=== PATIENT | female | born 1985 | race Caucasian/White ===

== ENCOUNTER → 2016-05-17 | Outpatient (CLI) | payer OTHER ==
[~2016-05-17] MED LIST: ONDA4TAB10 SL; PRENTAB26 PO
[2016-05-17 17:31] LABS: BASO % 0.1 %; BASO ABS # 0.01 K/uL (0-0.2); COMPLETE YES; EOS % 1.4 %; HEMATOCRIT 36.7 % (37-47); IG% 0.3 %; LYMPH % 24.7 %; LYMPH ABS # 1.96 K/uL (1.2-3.4); MEAN CELL VOLUME 87.4 fL (80-100); MEAN CORPUSCULAR HGB CONC 35.4 g/dl (32-36); MEAN PLATELET VOLUME 10.4 fL (7.4-10.4); NEUT % 67.5 %; PLATELET COUNT 187 K/uL (130-400); WHITE BLOOD COUNT 7.95 K/uL (4.8-10.8)
[2016-05-17 18:05] LABS: GTGD 50 Grams
== END | disposition home or self-care (01) ==
LOC: C.LAB1850 15:56
PROVIDERS: ATTEND Obstetrics & Gynecology
DX: O09.512 Supervision of elderly primigravida, second trimester (principal); Z3A.00 Weeks of gestation of pregnancy not specified; Z34.00 Encounter for supervision of normal first pregnancy, unspecified trimester

== ENCOUNTER → 2016-05-25 | Outpatient (CLI) | payer OTHER | END | disposition home or self-care (01) | LOC: C.LABPBG 14:59 | PROVIDERS: ATTEND Neuromusculoskeletal Medicine & OMM | DX: J06.9 Acute upper respiratory infection, unspecified (principal) ==

== ENCOUNTER 2016-07-30 00:11 | Outpatient (CLI) | payer OTHER ==
[~2016-07-30] VITALS: Ht 170.2 cm; Wt 76.0 kg
[2016-07-30 00:38] VITALS: Ht 170.2 cm; Wt 76.0 kg
[2016-07-30] MEDS ORDERED: PRENTAB26 PO (01:18)
--- NOTE | 2016-08-02 12:36 | EDITING REQUIRED CODING QUERY ---
DIAGNOSIS NEEDED To promote full compliance with coding requirements relating to patient care, physician participation is requested in all cases of insurance coder uncertainty. Please assist us with the question(s) below: Coding Question: The patient received care in labor and delivery on 07/30/16 as noted within the record. Please document the diagnosis that is being addressed by the medication/treatment. Provider Response: DIAGNOSIS: Looks like Joanne was involved that dos. Thank you for your assistance, Maribell Craig - Lead Data Entry Operator
--- NOTE | 2016-08-14 14:15 | EDITING REQUIRED CODING QUERY ---
DIAGNOSIS NEEDED To promote full compliance with coding requirements relating to patient care, physician participation is requested in all cases of intern brand uncertainty. Please assist us with the question(s) below: Coding Question: The patient received care in labor and delivery on 07/30/16 as noted within the record. Please document the diagnosis that is being addressed by the medication/treatment. Provider Response: DIAGNOSIS: Abdominal pain in , 646.83 Thank you for your assistance, Maribell Craig - Fluid Dynamicist
== END 2016-07-30 00:40 | disposition home or self-care (01) ==
LOC: C.LD 00:11 → C.OPB 00:11
PROVIDERS: ATTEND Obstetrics & Gynecology
DX: O99.89 Other specified diseases and conditions complicating pregnancy, childbirth and the puerperium (principal); R10.9 Unspecified abdominal pain; Z3A.26 26 weeks gestation of pregnancy

== ENCOUNTER → 2016-08-09 | Outpatient (CLI) | payer OTHER ==
[2016-08-09 15:03] LABS: URINE APPEARANCE CLEAR (CLEAR); URINE BILIRUBIN NEG (NEG); URINE COLOR YELLOW; URINE EPITHELIAL CELL AUTO >30 /lpf (0-5); URINE NITRITE NEG (NEG); URINE SPECIFIC GRAVITY 1.013 (1.000-1.030); UROBILINOGEN NEG (NEG)
[2016-08-09 15:07] LABS: MANUAL MICROSCOPIC REQUIRED? NO; REVIEW REQ? YES
== END | disposition home or self-care (01) ==
LOC: C.LABSPEC 13:36
PROVIDERS: ATTEND Obstetrics & Gynecology
DX: O09.513 Supervision of elderly primigravida, third trimester (principal)

== ENCOUNTER → 2016-08-09 | Outpatient (CLI) | payer OTHER ==
[2016-08-09 12:21] LABS: HEMATOCRIT 34.7 % (37-47)
[2016-08-09 13:19] LABS: GTGD 50 Grams
== END | disposition home or self-care (01) ==
LOC: C.LAB1850 10:38
PROVIDERS: ATTEND Obstetrics & Gynecology
DX: O09.513 Supervision of elderly primigravida, third trimester (principal)

== ENCOUNTER → 2016-09-09 | Outpatient (CLI) | payer OTHER ==
[2016-09-09 10:00] LABS: PATIENT HEIGHT 170.2 cm
[2016-09-09 10:43] LABS: HEMATOCRIT 33.7 % (37-47); MEAN CELL VOLUME 91.1 fL (80-100); MEAN CORPUSCULAR HGB CONC 32.9 g/dl (32-36); MEAN PLATELET VOLUME 10.5 fL (7.4-10.4); PLATELET COUNT 180 K/uL (130-400); WHITE BLOOD COUNT 7.56 K/uL (4.8-10.8)
[2016-09-09 11:01] LABS: URINE TOTAL PROTEIN 10.3 mg/dl (0-11.9)
[2016-09-09 11:13] LABS: ALKALINE PHOSPHATASE 97 U/L (45-117); ALT/SGPT 17 U/L (12-78); AST/SGOT 15 U/L (15-37); URIC ACID 2.8 mg/dl (2.6-7.2)
[2016-09-09 11:21] LABS: URINE TOTAL PROTEIN CALC 260.1 mg/24 hr (0-149.1)
[2016-09-09 11:28] LABS: CREATININE 0.58 mg/dl (0.6-1.2)
== END | disposition home or self-care (01) ==
LOC: C.LAB 09:44
PROVIDERS: ATTEND Obstetrics & Gynecology
DX: R03.0 Elevated blood-pressure reading, without diagnosis of hypertension (principal)

== ENCOUNTER → 2016-10-09 | Outpatient (CLI) | payer OTHER | END | disposition home or self-care (01) | LOC: C.LABSPEC 16:04 | PROVIDERS: ATTEND Obstetrics & Gynecology | DX: Z34.03 Encounter for supervision of normal first pregnancy, third trimester (principal) ==

== ENCOUNTER 2016-10-15 02:50 | Emergency (ER) | payer OTHER ==
[~2016-10-15] VITALS: Ht 170.2 cm; Wt 74.5 kg
[~2016-10-15 02:50] MED LIST changes: -ONDA4TAB10 SL
[2016-10-15 02:52] VITALS: TEMP 36.5; Ht 170.2 cm; Wt 74.5 kg
[2016-10-15] MEDS ORDERED: METOCLOPRAMIDE HCL INJ 5 MG/ML 2 ML VIAL IV STA (03:08)
[2016-10-15] MEDS ORDERED: SODIUM CHLORIDE 0.9% 1000ML 1,000 ML IV STA ×2 (03:08→04:34)
[2016-10-15] MEDS ORDERED: DiphenhydrAMINE HCL 50 MG/ML VIAL IV STA (03:08)
[2016-10-15 03:31] LABS: BASO % 0.2 %; BASO ABS # 0.02 K/uL (0-0.2); COMPLETE YES; HEMATOCRIT 32.2 % (37-47); IG% 0.2 %; LYMPH % 28.7 %; LYMPH ABS # 2.71 K/uL (1.2-3.4); MEAN CELL VOLUME 88.2 fL (80-100); MEAN CORPUSCULAR HEMOGLOBIN 29.6 pg (25-34); MEAN CORPUSCULAR HGB CONC 33.5 g/dl (32-36); MEAN PLATELET VOLUME 10.6 fL (7.4-10.4); MONO % 7.1 %; NEUT % 62.8 %; PLATELET COUNT 150 K/uL (130-400); RED BLOOD COUNT 3.65 M/uL (4.2-5.4); WHITE BLOOD COUNT 9.44 K/uL (4.8-10.8)
[2016-10-15 03:52] LABS: BUN/CREATININE RATIO 10.7 (10-20); CALCIUM 8.7 mg/dl (8.5-10.1); CREATININE 0.57 mg/dl (0.60-1.20); POTASSIUM 3.4 mmol/L (3.5-5.1)
[2016-10-15] MEDS ORDERED: POTASSIUM CHLORIDE 10 MEQ TABCR PO STA (04:01)
[2016-10-15] MEDS ORDERED: ACETAMINOPHEN 500 MG TAB PO STA (04:20)
[2016-10-15 04:24] LABS: URINE APPEARANCE CLEAR (CLEAR); URINE BILIRUBIN NEG (NEG); URINE COLOR YELLOW; URINE EPITHELIAL CELL AUTO >30 /lpf (0-5); URINE NITRITE NEG (NEG); URINE SPECIFIC GRAVITY 1.011 (1.000-1.030); UROBILINOGEN NEG (NEG); ZZUR CULT IF INDIC CLEAN CATCH YES
[2016-10-15 04:26] LABS: MANUAL MICROSCOPIC REQUIRED? NO; REVIEW REQ? NO
--- NOTE | 2016-10-15 05:35 | EMERGENCY ROOM VISIT NOTE ---
History First contact with patient: 02:56 Chief Complaint: HEADACHE Stated Complaint: MIGRAINE,VOMITING History of Present Illness The patient is a 31 year old female who presents to the Emergency Room with complaints of nausea and vomiting for the past day who developed a headache last night. Patient states she went out to dinner with her friends and then several hours later she developed nausea and vomiting. She states the next day she laid in the house today and then she vomited again and developed a headache over a short time. This was not sudden on set. She describes the headache as throbbing, ranging in severity throughout her head currently 10 out of 10. Patient complains of photophobia. Patient denies chest pain, dyspnea, diarrhea , flulike illness, vision problems, numbness, tingling, weakness, dysarthria, abdominal pain, problems with the . This is her first . Patient states she feels dehydrated. She's been unable to keep fluids down. Review of Systems See HPI for pertinent positives & negatives. A total of 10 systems reviewed and were otherwise negative. Past Medical/Surgical History None Social History Smoking Status: Former Smoker Alcohol Use: none Drug Use: none Current/Historical Medications No Active Prescriptions or Reported Meds Allergies Coded Allergies: No Known Allergies (Unverified , 10/15/16) Physical Exam Vital Signs Date Time Temp Pulse Resp B/P (MAP) Pulse Ox O2 Delivery O2 Flow Rate FiO2 10/15/16 02:52 36.5 80 18 123/88 100 Room Air Physical Exam VITALS: Vitals are noted on the nurse's note and reviewed by myself. Vital signs stable. GENERAL: Pleasant female, in no acute distress, nondiaphoretic, well-developed well-nourished. SKIN: The skin was without rashes, erythema, edema, or bruising. There is no tenting of the skin. Capillary reflex less than 2 seconds. HEAD: Normocephalic atraumatic. EARS: External auditory canals clear, tympanic membranes pearly lama without erythema or effusion bilaterally. EYES: Pupils equal round and reactive to light and accommodation. Conjunctivae without injection, sclerae without icterus. Extraocular movements intact. NOSE: Patent, turbinates without inflammation or discharge. MOUTH: Mucous membranes mildly dry. Pharynx without erythema or exudate. Uvula midline. Airway patent. Tongue does not deviate. NECK: Supple without nuchal rigidity. No lymphadenopathy. No thyromegaly. Cervical spine is nontender. No JVD. HEART: Regular rate and rhythm without murmurs gallops or rubs. LUNGS: Clear to auscultation bilaterally without wheezes, rales or rhonchi. No dullness to percussion. No retractions or accessory muscle use. ABDOMEN: Positive bowel sounds x 4. Normal tympanic percussion. Soft, 38 weeks , nontender, without masses or organomegaly. Reyes sign negative. No guarding or rebound tenderness. MUSCULOSKELETAL: No muscle atrophy, erythema, or edema noted. NEURO: Patient was alert and oriented to person place and time. Normal sensation to light and sharp touch. No focal neurological deficits. Cranial nerves II through XII grossly intact. No pronator drift, cerebellar exam intact. 5 out of 5 strength throughout Medical Decision & Procedures Laboratory Results 10/15/16 03:15 Red Blood Count 3.65, Mean Corpuscular Volume 88.2, Mean Corpuscular Hemoglobin 29.6, Mean Corpuscular Hemoglobin Concent 33.5, Mean Platelet Volume 10.6, Neutrophils (%) (Auto) 62.8, Lymphocytes (%) (Auto) 28.7, Monocytes (%) (Auto) 7.1, Eosinophils (%) (Auto) 1.0, Basophils (%) (Auto) 0.2, Neutrophils # (Auto) 5.93, Lymphocytes # (Auto) 2.71, Monocytes # (Auto) 0.67, Eosinophils # (Auto) 0.09, Basophils # (Auto) 0.02 10/15/16 03:15 Test 10/15/16 00:00 10/15/16 03:15 Urine Color YELLOW Urine Appearance CLEAR (CLEAR) Urine pH 8.0 (4.5-7.5) Urine Specific [place] 1.011 (1.000-1.030) Urine Protein NEG (NEG) Urine Glucose (UA) NEG (NEG) Urine Ketones 2+ (NEG) Urine Occult Blood NEG (NEG) Urine Nitrite NEG (NEG) Urine Bilirubin NEG (NEG) Urine Urobilinogen NEG (NEG) Urine Leukocyte Esterase MODERATE (NEG) Urine WBC (Auto) 5-10 /hpf (0-5) Urine RBC (Auto) 5-10 /hpf (0-4) Urine Hyaline Casts (Auto) 1-5 /lpf (0-5) Urine Epithelial Cells (Auto) >30 /lpf (0-5) Urine Bacteria (Auto) 2+ (NEG) White Blood Count 9.44 K/uL (4.8-10.8) Red Blood Count 3.65 M/uL (4.2-5.4) Hemoglobin 10.8 g/dL (12.0-16.0) Hematocrit 32.2 % (37-47) Mean Corpuscular Volume 88.2 fL (80-100) Mean Corpuscular Hemoglobin 29.6 pg (25-34) Mean Corpuscular Hemoglobin Concent 33.5 g/dl (32-36) Platelet Count 150 K/uL (130-400) Mean Platelet Volume 10.6 fL (7.4-10.4) Neutrophils (%) (Auto) 62.8 % Lymphocytes (%) (Auto) 28.7 % Monocytes (%) (Auto) 7.1 % Eosinophils (%) (Auto) 1.0 % Basophils (%) (Auto) 0.2 % Neutrophils # (Auto) 5.93 K/uL (1.4-6.5) Lymphocytes # (Auto) 2.71 K/uL (1.2-3.4) Monocytes # (Auto) 0.67 K/uL (0.11-0.59) Eosinophils # (Auto) 0.09 K/uL (0-0.5) Basophils # (Auto) 0.02 K/uL (0-0.2) RDW Standard Deviation 43.0 fL (36.4-46.3) RDW Coefficient of Variation 13.4 % (11.5-14.5) Immature Granulocyte % (Auto) 0.2 % Immature Granulocyte # (Auto) 0.02 K/uL (0.00-0.02) Anion Gap 12.0 mmol/L (3-11) Est Creatinine Clear Calc Drug Dose 153.5 ml/min Estimated GFR () 145.2 Estimated GFR (Non- 125.3 BUN/Creatinine Ratio 10.7 (10-20) Calcium Level 8.7 mg/dl (8.5-10.1) Medications Administered Medications (Trade) Dose Ordered Sig/Cookie Route Start Time Stop Time Status Last Admin Dose Admin Sodium Chloride 1,000 ml @ 999 mls/hr Q1H1M STAT IV 10/15/16 03:08 6/26/17 04:08 DC 10/15/16 03:31 999 MLS/HR Metoclopramide HCl (Reglan Inj) 10 mg NOW STAT IV 10/15/16 03:08 10/15/16 03:11 DC 10/15/16 03:31 10 MG Diphenhydramine HCl (Benadryl Inj) 12.5 mg NOW STAT IV 10/15/16 03:08 10/15/16 03:11 DC 10/15/16 03:31 12.5 MG Potassium Chloride (Klor-Con M10) 10 meq NOW STAT PO 10/15/16 04:01 10/15/16 04:02 DC 10/15/16 04:08 10 MEQ Acetaminophen (Tylenol Tab) 1,000 mg NOW STAT PO 10/15/16 04:20 10/15/16 04:21 DC 10/15/16 04:30 1,000 MG Sodium Chloride 1,000 ml @ 999 mls/hr Q1H1M STAT IV 10/15/16 04:34 10/15/16 05:34 DC 10/15/16 04:38 999 MLS/HR ED Course Prior records/ancillary studies reviewed. Additional history obtained from family. Triage Nursing notes reviewed. The patient's history was concerning for headache. Differential diagnosis: Etiologies such as migraine headache, meningitis, sinusitis, CO exposure, ICH, SAH, infection, tumor, headache, sinus thrombosis, arterial dissection, as well as others were entertained. Physical examination findings: As above. Non-focal. ER treatment provided: Reglan, Benadryl, IV fluids On reassessment the patient felt better. Diagnostics interpreted by me: The labs revealed urine 2+ ketones, mild anemia. Hypokalemia and this is replaced orally heart tones reviewed This appears to be consistent with headache with vomiting most likely from dehydration. Patient started with nausea and vomiting and was unable to keep fluids down and developed a headache. This is most likely from dehydration. She is hydrated as above and felt much better. She is neurovascularly and neurologically intact. Normal heart tones. She is advised follow-up with OB in a few days or here in the ER sooner for headache, weakness, vomiting , worsening signs or symptoms or as needed. She is tolerating fluids. She ambulates out of the ER without difficulties. By the evaluation outlined above emergent etiologies such as meningitis, sinusitis, CO exposure, ICH, SAH, infection, temporal arteritis, tumor, sinus thrombosis, arterial dissection, as well as others were deemed relatively unlikely. The pt informed about the findings as listed above. All questions were answered and pleased with the treatment. Return instructions were outlined and the patient was discharged in stable condition. Outpatient prescription management: Zofran Referral: The patient was referred back to their DIRECTOR EXPERIMENTAL MEDICINE for follow-up in 2 to 3 days for a recheck of the current condition. Case reviewed with my attending Medical Decision As above Impression Primary Impression: Headache Additional Impressions: Nausea & vomiting Dehydration Departure Information Dispostion Home / Self-Care Condition GOOD Prescriptions No Active Prescriptions or Reported Meds Referrals Javon Burks D.O. (PCP) Patient Instructions My [facility] Additional Instructions DO NOT drive, drink alcohol, operate machinery, or perform dangerous activities today. You were given medications in the ER that can affect your ability to safely function or operate a vehicle. Zofran(odansetron) tablets 4mg: Take one and allow it to dissolve in your mouth every four to six hours as needed for nausea or vomiting. Acetaminophen(Tylenol) may be used for fever or pain. Use 1000mg every six hours as needed. Avoid using more than 3000mg in a 24 hour period. Rest and drink plenty of fluids as tolerated. Slow sips of water or sports drinks are recommended instead of large amounts all at once. Continue current medications. Once your stomach is settled start with a clear liquid diet (jello, soup broth, etc.) and then advance as tolerated. You should avoid full, heavy meals for about 24 hrs from the time your symptoms resolved. Return to the ER for persistent vomiting, fevers, abdominal pain, chest pains, difficulty breathing, black or bloody stools, worsening of your condition, or as needed. Follow up with your DIRECTOR EXPERIMENTAL MEDICINE in 2-3 days for a recheck of your current condition. Problem Qualifiers Primary Impression: Headache Headache type: unspecified Headache chronicity pattern: acute headache Intractability: not intractable Qualified Codes: R51 - Headache Additional Impressions: Nausea & vomiting Vomiting type: unspecified Vomiting Intractability: non-intractable Qualified Codes: R11.2 - Nausea with vomiting, unspecified
[2016-10-15] MEDS ORDERED: ONDA4TAB10 SL (05:36)
[2016-10-15] MEDS ORDERED: ONDANSETRON HOME PACK 4MG OD TAB PO ONE (05:45)
[2016-10-15 06:20] VITALS: BP 117/86; PULSE 83; O2SAT 100
== END 2016-10-15 06:21 | disposition home or self-care (01) ==
LOC: C.EDB 02:51
DX: R51 Headache (principal); O21.9 Vomiting of pregnancy, unspecified; O99.283 Endocrine, nutritional and metabolic diseases complicating pregnancy, third trimester; Z3A.38 38 weeks gestation of pregnancy; E86.0 Dehydration; Z87.891 Personal history of nicotine dependence

== ENCOUNTER 2016-10-30 01:00 | Inpatient (IN) | payer OTHER ==
[~2016-10-30] VITALS: Ht 170.2 cm; Wt 75.3 kg
[2016-10-30] VITALS (12 sets, daily range): BP systolic 116–131; BP diastolic 66–92; PULSE 89–108; TEMP 36.6–37.8; O2SAT 99–100; Ht 170.2 cm; Wt 75.3 kg
[~2016-10-30 01:00] MED LIST changes: +ONDA4TAB10 SL; -PRENTAB26 PO
[2016-10-30] MEDS ORDERED: PRENTAB26 PO (01:28)
[2016-10-30] MEDS ORDERED: LACTATED RINGER'S 1000ML 1,000 ML IV SCH ×2 (03:00→16:30)
[2016-10-30] MEDS ORDERED: LACTATED RINGER'S 1000ML 1,000 ML IV PRN (03:00)
[2016-10-30] MEDS ORDERED: BUTORPHANOL TARTRATE 1 MG/ML VIAL IV PRN (03:00)
[2016-10-30 03:48] LABS: HEMATOCRIT 31.9 % (37-47); MEAN CELL VOLUME 87.2 fL (80-100); MEAN CORPUSCULAR HGB CONC 33.2 g/dl (32-36); MEAN PLATELET VOLUME 10.7 fL (7.4-10.4); PLATELET COUNT 155 K/uL (130-400); RED BLOOD COUNT 3.66 M/uL (4.2-5.4); WHITE BLOOD COUNT 11.58 K/uL (4.8-10.8)
[2016-10-30] MEDS ORDERED: BUPIVACAINE 0.25% 30 ML VIAL ONE (04:42)
[2016-10-30] MEDS ORDERED: FENTANYL CITRATE INJ 50 MCG/1 ML 2 ML VIAL ONE ×2 (04:43→07:28)
[2016-10-30] MEDS ORDERED: EpHEDrine SULFATE INJ 50 MG/ML AMP ONE (04:43)
[2016-10-30] MEDS ORDERED: FENTANYL 2MCG/ML ROPIV 1.25MG/ML 100ML BAG EPI ONE (04:43)
[2016-10-30] MEDS ORDERED: OXYTOCIN 30 UNITS/500ML NSS IV ONE (05:16)
[2016-10-30] MEDS ORDERED: ACETAMINOPHEN/CODEINE 300/30MG TAB PO PRN ×2 (06:00)
[2016-10-30] MEDS ORDERED: ACETAMINOPHEN 325 MG TAB PO PRN (06:00)
[2016-10-30] MEDS ORDERED: SUPERCREAM 0.870 % 15GM JAR EXT PRN (06:00)
[2016-10-30] MEDS ORDERED: BENZOCAINE 20% AER SPR 82.5 GM CAN EXT PRN (06:00)
[2016-10-30] MEDS ORDERED: IBUPROFEN 600 MG TAB PO PRN (06:00)
--- NOTE | 2016-10-30 06:10 | Vaginal Delivery Summary ---
Vaginal Delivery Summary The patient is a 31-year-old 1 P0 white female EDC of 11/02/2016 who began regular contractions approximately 2300 hrs. they became more regular and closer together when she presented to labor and delivery. There was rupture of membranes of clear fluid at approximately 2300 hrs. as well. She rapidly went to full dilation and pushed effectively over an intact perineum however there was persistent bradycardia to 80-90 bpm. The presenting part was at +3 station and because of the persistence of the bradycardia, a vacuum was applied and with gentle traction through 4 contractions with only one pop off the vertex was brought to on the perineum. She pushed the infant amount over a mediolateral episiotomy.. Mouth and nasopharynx were suctioned on the perineum and the rest of the was delivered without difficulty. There was vigorous crying upon delivery and movement of all 4 limbs. The infant was placed on the mother's abdomen for further attention and drying. The mediolateral episiotomy was repaired in the usual fashion with 3-0 chromic. 1% lidocaine was used to anesthetize the area prior to the repair. bleeding was controlled with dilute Pitocin. Estimated blood loss is 500 mL. Mother and infant are doing well postdelivery.
[2016-10-30] MEDS: OXYTOCIN 30 UNITS/500ML NSS IV PRN ×2 (06:12→07:10)
[2016-10-30] MEDS ORDERED: METHYLERGONOVINE MALEATE 0.2 MG/ML AMP ONE (06:28)
[2016-10-30] MEDS ORDERED: METHYLERGONOVINE MALEATE 0.2 MG/ML AMP IM STA (06:32)
[2016-10-30] MEDS ORDERED: MIDAZOLAM HCL 1 MG/ML 2ML VIAL ONE (07:28)
[2016-10-30] MEDS: DOCUSATE SODIUM 100 MG CAP PO SCH ×2 (08:00→20:27)
[2016-10-30] MEDS: PRENATAL VITAMIN TAB PO SCH (08:00)
[2016-10-30] MEDS ORDERED: MISOPROSTOL 200 MCG TAB ONE (08:15)
[2016-10-30] MEDS ORDERED: PROPOFOL IV EMULSION 10 MG/ML 20 ML VIAL IV ONE (08:19)
[2016-10-30] MEDS ORDERED: ROCURONIUM BROMIDE 10 MG/ML 5 ML VIAL ONE (08:19)
[2016-10-30] MEDS ORDERED: SUCCINYLCHOLINE CHLORIDE 20 MG/ML 10 ML VIAL IV ONE (08:19)
[2016-10-30] MEDS ORDERED: DEXAMETHASONE SOD INJ 4 MG/ML VIAL ONE (08:19)
[2016-10-30] MEDS ORDERED: ONDANSETRON INJ 2 MG/ML 2 ML VIAL ONE (08:19)
[2016-10-30] MEDS ORDERED: OXYTOCIN INJ 10 UNITS/ML VIAL ONE (08:19)
[2016-10-30] MEDS ORDERED: KETOROLAC TROMETHAMINE 30 MG/ML VIAL ONE (08:25)
[2016-10-30] MEDS ORDERED: CEFAZOLIN 2000 MG/60 ML D5W IV SCH (08:30)
--- NOTE | 2016-10-30 08:40 | Anesthesiology Progress Note ---
Anesthesia Post Op Note Date & Time Oct 30, 2016 at 08:39 Vital Signs Pain Intensity: 10.0 Notes Mental Status: alert / awake / arousable, participated in evaluation Pt Amnestic to Procedure: Yes Nausea / Vomiting: adequately controlled Pain: adequately controlled Airway Patency, RR, SpO2: stable & adequate BP & HR: stable & adequate Hydration State: stable & adequate Anesthetic Complications: no major complications apparent
--- NOTE | 2016-10-30 09:06 | [facility] Operative Report ---
Operative Report Operative Date Oct 30, 2016. Pre-Operative Diagnosis hemorrhage, status post vaccuum assisted vaginal delivery with medial lateral episiotomy Post-Operative Diagnosis Same plus bleeding at vaginal laceration site. Procedure(s) Performed D&C manual exploration of the uterine cavity inspection of cervix and repair of vaginal laceration Surgeon Lilli Miles M.D. Estimated Blood Loss 1500 mL Findings The patient had significant bleeding with clots despite dilute Pitocin and IM Methergine. At that point the estimated blood loss by weighed chucks was 950 mL. The uterus appeared firm but the bleeding continued and exam under anesthesia was necessary to evaluate the source of the bleeding. After she received adequate general endotracheal anesthesia she was prepped and draped in the usual sterile fashion. A weighted speculum was placed in the vagina and the anterior lip of the cervix was grasped with a ring forcep. The uterus was explored with the SureVisit curet. Minimal tissue was obtained. A manual exploration of the uterus was then done. There was no retained products of conception present. The cervix was then examined thoroughly for any tears and was noted to be intact. At this point the bleeding seemed to be tapered off. Because the diagnosis of uterine atony was still the primary source of the bleeding a Bakri-balloon was attempted to be inserted. The uterus at this point was so contracted down at the Bakri balloon was expelled. Attention was then turned to the medial lateral episiotomy. Evaluation of the vaginal vault revealed the source of the bleeding at the apex of the vaginal laceration. 3-0 chromic was used to close the vaginal laceration on the midline. Several figure -of-eight sutures were used to reinforce the closure. The rest of the perineum was examined some bleeding from the medial lateral episiotomy site was repaired with 3-0 chromic as well. The vaginal vault was then carefully watched and there was no further bleeding and no development of hematoma. A Banegas catheter was inserted at the end of the case using sterile technique. Patient is currently getting 2 units of packed cells because estimated blood loss was 1500 mL total. She remained stable throughout the procedure and continues to be so in recovery. Fluids 4000 Specimens none Drains Banegas to straight drainage Anesthesia GET Complication(s) None Disposition L&D I attest to the content of the Intraoperative Record and any orders documented therein. Any exceptions are noted below.
--- NOTE | 2016-10-30 09:25 | Medical Student: [facility] ---
Operative Report Operative Date Oct 30, 2016. Pre-Operative Diagnosis hemorrhage, status post vac. assist vag. delivery w/ episiotomy Post-Operative Diagnosis same; + bellding a vaginal laceration site Procedure(s) Performed D&C, manual exploration of the uterine cavity with inspection of the cervix, repair of vaginal laceration Surgeon Dr. Miles Upholstery Parts Sorter Surgeon(s) N/A Estimated Blood Loss 150mL from OR; 1500mL total Findings firm uterus, no retained products of conception present, bleeding from vaginal laceration site post mediolateral episiotomy Fluids (cc crystalloids) 4L Specimens None Drains Banegas Anesthesia general endotracheal anesthesia Complication(s) None Disposition L&D
[2016-10-30 09:30] LABS: HEMATOCRIT 23.4 % (37-47)
[2016-10-30 16:48] LABS: HEMATOCRIT 19.2 % (37-47)
[2016-10-30] MEDS ORDERED: ACETAMINOPHEN 500 MG TAB PO STA (16:50)
[2016-10-31] VITALS (8 sets, daily range): BP systolic 104–131; BP diastolic 68–89; PULSE 74–103; TEMP 36.6–36.8; O2SAT 98–100
[2016-10-31] MEDS ORDERED: CEFAZOLIN IV 2,000 MG/60 ML D5W IV ONE (06:00)
--- NOTE | 2016-10-31 06:56 | OB/GYN Progress Note ---
INSIDE TECHNICAL SALES REPRESENTATIVE Progress Note Date of Service Oct 31, 2016. Subjective conversation w/ patient, physical exam, chart review, lab review Ambulation: ambulating normally Voiding: no voiding problems Passing Gas: Yes (No BM yet) Lochia: Small (Pt states she's had minimal vaginal bleeding overnight) Feeding Type: Bottle Feeding (no plans for breast feeding) Pain: Denies any pain Notes: Pt very upbeat, smiling, says she's feeling quite good. Review of Systems Constitutional: No fever, No chills Respiratory: No cough, No shortness of breath Cardiac: No chest pain Abdomen: No nausea, No vomiting, No diarrhea Female : No dysuria Objective Vital Signs Date Time Temp Pulse Resp B/P (MAP) Pulse Ox O2 Delivery O2 Flow Rate FiO2 10/31/16 06:00 87 116/80 (92) 10/31/16 04:20 36.6 89 18 104/68 (80) 100 Room Air 10/31/16 00:10 36.7 92 18 117/77 99 10/30/16 23:05 36.8 89 16 120/80 99 10/30/16 23:05 Room Air 10/30/16 22:28 36.6 94 18 116/75 99 10/30/16 22:00 36.6 98 18 118/78 100 10/30/16 21:45 36.7 98 18 119/78 (92) 100 Room Air 10/30/16 21:45 36.7 98 18 119/78 100 10/30/16 21:29 36.8 98 16 131/82 99 10/30/16 21:05 37.0 92 16 119/78 100 10/30/16 20:05 37.7 101 16 124/66 (85) 99 Room Air 10/30/16 20:05 99 Room Air 10/30/16 20:05 37.7 101 16 124/66 99 10/30/16 19:05 37.8 99 16 122/81 100 10/30/16 18:35 37.0 103 16 125/84 100 10/30/16 18:20 36.7 108 18 130/83 99 10/30/16 18:04 37.0 95 18 117/82 99 10/30/16 17:00 37.1 92 16 118/92 (101) 99 Room Air 10/30/16 17:00 99 Room Air Physical Exam General Appearance: WELL-APPEARING, WD/WN, NO APPARENT DISTRESS Respiratory/Chest: lungs clear, normal breath sounds Cardiovascular: regular rate, rhythm Abdomen: normal bowel sounds, non tender, soft Fundus: Firm, Relation to Umbilicus (at umbilicus) Extremities: normal range of motion, non-tender, no pedal edema, no calf tenderness Laboratory Results Last 24 Hours Test 10/30/16 09:15 10/30/16 15:59 10/31/16 06:15 Hemoglobin 7.8 g/dL 6.5 g/dL 7.0 g/dL Hematocrit 23.4 % 19.2 % 21.0 % Assessment and Plan Post- Day Number: 1 Continue Routine Care: 31yo s/p vacuum vaginal delivery, now PPD #1. Notable post- hemorrhage, EBL 1500 mL. - Hemoglobin 10.6, 7.8, 6.5. Transfused two units PRBCs. This mornings Hb 7.0. Monitoring clinically as well. - Blood type AB negative. GBS negative. Rubella immune. - Vital signs reviewed and stable. - Pain controlled with Tylenol. - No leg swelling or tenderness on calf palpation. SCDs in place. - Pt wishes to bottle feed only. - Pt agreed with above plan, all current questions answered. Giuseppe Elmore MD, PGY1 Earth Boring Machine Operator Physician Supervision Note: I was present with Dr. Elmore during the history and exam. I discussed the case with the resident and agree with the findings and plan as documented in the note. Any exceptions or clarifications are listed here: pt is doing well. tolerating hgb well and no significant bleeding. i would lean toward no further h/h as no active bleeding. she feels better. she is aware to take fe tid once home and colace to help with constipation it will cause. she will have rhogam eval if indicated. Documented By: Abbi Boyd Resident Tracking Resident Involvement: Resident Care Provided Care Provided: OB Delivery (morning rounds)
[2016-10-31] MEDS: PRENATAL VITAMIN TAB PO SCH (09:22)
[2016-10-31] MEDS: DOCUSATE SODIUM 100 MG CAP PO SCH ×2 (09:22→19:36)
[2016-10-31] MEDS ORDERED: BISACODYL 5 MG TABEC PO SCH (20:00)
[2016-11-01 04:10] VITALS: BP 121/82; PULSE 79; TEMP 36.8; O2SAT 98
--- NOTE | 2016-11-01 06:41 | OB/GYN Progress Note ---
TAPPER OPERATOR Progress Note Date of Service Nov 01, 2016. Subjective conversation w/ patient, physical exam, chart review, lab review Ambulation: ambulating normally Voiding: no voiding problems Passing Gas: Yes (no BM yet) Diet Tolerance: Regular Diet Lochia: Small Feeding Type: Bottle Feeding Pain: Denies Review of Systems Constitutional: No fever, No chills Respiratory: No cough, No shortness of breath Cardiac: No chest pain Abdomen: No nausea, No vomiting, No diarrhea Female : No dysuria Objective Vital Signs Date Time Temp Pulse Resp B/P (MAP) Pulse Ox O2 Delivery O2 Flow Rate FiO2 11/01/16 04:10 36.8 79 16 121/82 (95) 98 Room Air 10/31/16 23:45 36.6 89 16 128/87 (101) 100 Room Air 10/31/16 23:45 100 Room Air 10/31/16 19:40 36.6 89 18 124/86 (99) 99 Room Air 10/31/16 16:00 36.7 103 18 126/89 (101) Room Air 10/31/16 16:00 Room Air 10/31/16 12:00 36.7 74 18 108/78 (88) 98 Room Air 10/31/16 08:00 Room Air 10/31/16 08:00 36.8 90 16 131/86 (101) Room Air Physical Exam General Appearance: WELL-APPEARING, WD/WN, NO APPARENT DISTRESS Respiratory/Chest: lungs clear, normal breath sounds Cardiovascular: regular rate, rhythm Abdomen: normal bowel sounds, non tender, soft Fundus: Firm, Relation to Umbilicus (approx two down) Extremities: normal range of motion, non-tender, no calf tenderness, + pedal edema (Minimal (B) ankles, roughly unchanged from yesterday) Assessment and Plan Post- Day Number: 2 Continue Routine Care: 31yo s/p vacuum vaginal delivery, now PPD #2. Notable post- hemorrhage, EBL 1500 mL. - Hemoglobin 10.6, 7.8, 6.5. Transfused two units PRBCs. Follow-on Hb 7.0. Monitoring clinically as well. - Blood type AB negative. GBS negative. Rubella immune. Baby is A positive. Mom given RhoGAM. - Vital signs reviewed and stable. - Pain controlled with Tylenol. - No tenderness on calf palpation. Minimal (B) ankle swelling. SCDs in place. - Pt wishes to bottle feed only. - Continue post-vaginal delivery care. Pt reminded about iron tid and Colace prn once home. - Pt agreed with above plan, all current questions answered. Giuseppe Elmore MD, PGY1 Seed Buyer Physician Supervision Note: I interviewed and examined the patient. Discussed with Dr. Elmore and agree with findings and plan as documented in the note. Any exceptions or clarifications are listed here: [None] Documented By: Paul Dillon Resident Tracking Resident Involvement: Resident Care Provided Care Provided: OB Delivery (morning rounds)
--- NOTE | 2016-11-01 07:00 | Discharge Instructions ---
Discharge Instructions Date of Service Nov 01, 2016. Admission Reason for Admission: Normal Labor, With 39 Completed Weeks Discharge Discharge Diagnosis / Problem: Recovery from vaginal delivery Discharge Goals Goal(s): Routine recovery after delivery Medications Continue Dispensed Medications: supercream, dermaplast, tucks, lansinoh Activity Recommendations Activity Limitations: per Instructions/Follow-up section . Instructions / Follow-Up Instructions / Follow-Up ACTIVITY RECOMMENDATIONS: * Gradual return to full activity over the next 2-3 weeks. * No lifting - nothing heavier than baby over the next 2-3 weeks. * Do not engage in vigorous exercise, sexual activity or sports until cleared by your physician. * Do not drive or operate any motorized equipment until cleared by your physician. * You may shower/bathe daily. MEDICATIONS: For discomfort or pain, you may use Acetaminophen (Tylenol), Ibuprofen (Advil), or Naproxen (Aleve) following the package directions. For constipation you may use Colace following the package directions. BREAST CARE: If you are not breast feeding: * Wear a supportive bra 24 hours a day for one to two weeks. * Avoid stimulating your breasts and nipples as much as possible during the first few weeks after delivery. * When taking a shower, have the warm water hit your back, not breasts. * When your breasts feel full, apply ice packs. Usually three to four times a day helps ease the discomfort. * Take a mild pain medication (Tylenol / Motrin) when you are uncomfortable. If breast feeding: * Use breast milk to lubricate nipples. Lansinoh cream may be used for sore nipples. You do not need to remove cream prior to breast feeding. If using a different brand of cream, check the label for directions regarding removal of cream prior to nursing. * Wear a supportive bra. * If having problems with breasts or breast feeding, call a systems security consultant or your health care provider. EPISIOTOMY CARE: After delivery, if you have an episiotomy (stitches), the following steps will ease discomfort and aid healing. * For the first 24 hours after delivery, place ice packs next to your episiotomy to help reduce swelling. * After the first 24 hour-period, sitz baths, either portable or in the tub, are suggested. A shower with a shower arm sprayed over the episiotomy may be comforting. * Yecenia care should be done after each voiding and bowel movement. Squirt warm water from a plastic bottle over the perineum (region of the body between the anus and urinary opening) and pat dry. * Use Dermoplast to ease discomfort. Shake container. [place] directly over the episiotomy. Place a Tucks on a clean sanitary pad next to your episiotomy. SPECIAL CARE INSTRUCTIONS: When you are discharged from the hospital, it is important for you to follow the instructions listed below: * During the first week at home, you should be able to care for yourself and your baby. In addition, the usual light household activities are encouraged. * Limit your activities to the way you feel. Do not try to clean the house or move furniture. Be sensible. * If you actively engage in sports and have done so up until the time of your delivery, you may resume these activities as soon as you feel able. This may take up to one month or even longer. Use good judgment. * Continue to take your vitamins for at least six weeks after the of your baby. * Your diet need not be limited unless you were on a special diet before your delivery. Breast-feeding mothers need around 2500 calories per day and at least 64-80 ounces of fluid per day (8 to 10 glasses). * You should eat foods from the four major food groups. Crash diets or fad diets are to be avoided. Eating lean meats, fresh fruits and vegetables, low-fat dairy products, high fiber foods and a regular exercise program, will help you get back to your pre- weight without putting your health at risk. * Constipation is sometimes a problem after delivery. Take a mild laxative as needed. If breast feeding, Milk of Magnesia is acceptable to use. You may use a suppository or Fleets enema if no episiotomy. * A daily shower or tub bath is suggested. Be sure to thoroughly and gently dry the perineum. * A bloody vaginal discharge will usually continue until around four weeks post . A small amount of bleeding may continue for as long as six weeks. Vaginal discharge changes from the bright red bleeding after delivery to pink then brownish and finally yellowish-pink before becoming white and disappearing. * Bleeding may increase with activity. Your first period may come in 4-8 weeks. If you are breast feeding, your period may be delayed even longer. * [employer] (sex) can begin whenever both you and your partner feel comfortable and do not have any form of genital infection. It is recommended that you wait at least six weeks for internal and external healing to occur. If you have questions, please talk to your health care practitioner. A condom should be used to prevent infection and . * Foreplay, gentle intercourse and lubrication is very important the first several times to prevent pain. A water-based lubricant such as K-Y jelly or Astroglide may be used. * If you have RH negative blood and your baby is RH positive, you will receive RHOGAM by injection prior to discharge. The nurse will give you a card to keep with you that has the date and place that you received RHOGAM after delivery. * During your care, you had a Rubella screen done to check for the presence of rubella antibodies in your blood. If your test was negative, you will receive a Rubella vaccine prior to discharge. This vaccine may cause a fever, soreness at the injection site and flu-like symptoms. If these symptoms persist, notify your health care practitioner. is not advised for one month after a Rubella vaccine. * Verbalizes understanding of car seat law as reviewed with patient nursing. * Car Seat hand-out given and reviewed with patient by nursing. * Shaken baby information reviewed with patient by nursing. Call you doctor if: * Heavy bleeding (saturating several pads an hour) or passing clots the size of your fist. * A fever >101 degrees F (38.3 degrees C) on two occasions four hours apart and /or chills. * Unusual pain in the pelvic or vaginal areas. * "Baby Blues" lasting longer than two weeks. If you have any questions or concerns, call your health care practitioner at . FOLLOW UP VISIT: * Please call the office at to schedule a 6 week examination. It is important you keep this appointment. It is important for you to make arrangements for either yearly or twice yearly check-ups thereafter. Current Hospital Diet Patient's current hospital diet: Regular OB Diet Discharge Diet Recommended Diet: Regular OB Diet Procedures Procedures Performed: Dilation and curettage, attempted Bakri balloon placement, and bleeding vaginal laceration repair. Pending Studies Studies pending at discharge: no Medical Emergencies . Who to Call and When: Medical Emergencies: If at any time you feel your situation is an emergency, please call 911 immediately. . Non-Emergent Contact Non-Emergency issues call your: Boom Conveyor Operator . . "Provider Documentation" section prepared by Giuseppe Elmore. . VTE Core Measure Inpt VTE Proph given/why not?: Treatment not indicated
[2016-11-01 07:10] VITALS: BP 131/88; PULSE 74; TEMP 36.6; O2SAT 100
[2016-11-01] MEDS: PRENATAL VITAMIN TAB PO SCH (07:55)
[2016-11-01] MEDS: DOCUSATE SODIUM 100 MG CAP PO SCH (07:55)
[2016-11-01 09:20] VITALS: BP_DIAS 88; PULSE 74; TEMP 36.6
--- NOTE | 2016-11-01 11:32 | Discharge Summary ---
Discharge Summary Date of Service Nov 01, 2016. Discharge Summary The patient is a 31-year-old white female who presented at 39 weeks in active labor. She progressed to full dilation without medication. She had pushed effectively but he cut as the heart rate tracing remained in the 80 -90 bpm range, outlet vacuum assisted delivery was performed after performing a medial lateral episiotomy. The episiotomy was repaired in the usual fashion. she continue to have steady bleeding despite dilute Pitocin and IM Methergine. Approximately 1 hour after delivery blood loss was estimated at 800 mL. At this point it was decided to do an exam under anesthesia and checked for retained products of conception. Upon inspection and manual exploration both uterus and cervix were intact with no retained products of conception. Bleeding had ceased at this time. After removing the weighted speculum from the vagina, the apex of the vaginal laceration was noted to be bleeding from an arterial source. 3-0 chromic was used to control the bleeding and at the end of the case hemostasis was excellent. At the end of the case blood loss was estimated at 1500 mL's. She received 2 units of packed cells . Hemoglobin was 10.6 dropped to 6.4 after the 2 units of blood. hemoglobin following that transfusion was 7.0. She remained asymptomatic throughout this time. And denied lightheadedness dizziness shortness of breath. She was sent home with her usual vitamin as well as iron to be taken twice a day for the next 6 weeks. She'll be seen in 6 weeks for follow-up visit and at which point an H&H will be rechecked. She was sent home in stable condition.
--- NOTE | 2016-11-02 08:55 | EDITING REQUIRED CODING QUERY ---
CODING QUERY ANEMIA To promote full compliance with coding requirements relating to patient care, physician participation is requested in all cases of finance and administration manager uncertainty. Please assist us with the question(s) below: Coding Question(s): The record reflects the following clinical documentation: At the end of the case blood loss was estimated at 1500 mL's. She received 2 units of packed cells . Hemoglobin was 10.6 dropped to 6.4 after the 2 units of blood. hemoglobin following that transfusion was 7.0. She remained asymptomatic throughout this time. And denied lightheadedness dizziness shortness of breath. She was sent home with her usual vitamin as well as iron to be taken twice a day for the next 6 weeks) If these findings indicate anemia, please indicate the type of anemia this patient had: ( x) Acute blood loss anemia ( ) Acute postoperative anemia due to dilutional fluids ( ) Chronic blood loss anemia (x ) Iron deficient anemia due to blood loss ( ) Iron deficiency anemia ( ) Anemia, unspecified or other ( ) Other: (please specify) ( ) Unable to determine Thank you for your time, FABIOLA Sargent, CHLORINE PLANT OPERATOR
== END 2016-11-01 10:00 | disposition home or self-care (01) | DRG 774 ==
LOC: C.OPB 01:00 → C.LD 01:01 → C.OPB 03:03 → C.OBG 16:52
PROVIDERS: ADMIT Obstetrics & Gynecology; ATTEND Obstetrics & Gynecology
PROC: 0W8NXZZ Division of Female Perineum, External Approach (ICD-10-PCS; principal; 2016-10-30 11:27)
PROC: 10D07Z8 Extraction of Products of Conception, Other, Via Natural or Artificial Opening (ICD-10-PCS; principal; 2016-10-30 11:27)
PROC: 10D07Z6 Extraction of Products of Conception, Vacuum, Via Natural or Artificial Opening (ICD-10-PCS; principal; 2016-10-30 11:27)
PROC: 0UQG7ZZ Repair Vagina, Via Natural or Artificial Opening (ICD-10-PCS; principal; 2016-10-30 11:27)
DX: O72.1 Other immediate postpartum hemorrhage (principal); O71.4 Obstetric high vaginal laceration alone; D62 Acute posthemorrhagic anemia; O99.03 Anemia complicating the puerperium; O76 Abnormality in fetal heart rate and rhythm complicating labor and delivery; Z37.0 Single live birth; Z3A.39 39 weeks gestation of pregnancy

== ENCOUNTER 2017-09-15 12:47 | Emergency (ER) | payer OTHER ==
[~2017-09-15] VITALS: Ht 170.2 cm; Wt 62.2 kg
[~2017-09-15 12:47] MED LIST changes: -ONDA4TAB10 SL; +PRENTAB26 PO
[2017-09-15 12:51] VITALS: TEMP 36.8; Ht 170.2 cm; Wt 62.2 kg
[2017-09-15] MEDS ORDERED: SODIUM CHLORIDE 0.9% 1000ML 1,000 ML IV ONE (13:15)
[2017-09-15] MEDS ORDERED: ONDANSETRON INJ 2 MG/ML 2 ML VIAL IV PRN (13:15)
[2017-09-15] MEDS ORDERED: MoRPHine SULFATE 4 MG/ML 1 ML CARP\\VIAL IV PRN (13:15)
[2017-09-15 13:38] LABS: BASO % 0.2 %; BASO ABS # 0.01 K/uL (0-0.2); EOS % 1.5 %; EOS ABS # 0.08 K/uL (0-0.5); HEMATOCRIT 39.5 % (37-47); HEMOGLOBIN 13.5 g/dL (12.0-16.0); LYMPH % 31.4 %; LYMPH ABS # 1.66 K/uL (1.2-3.4); MEAN CORPUSCULAR HEMOGLOBIN 30.4 pg (25-34); MEAN CORPUSCULAR HGB CONC 34.2 g/dl (32-36); MEAN PLATELET VOLUME 9.9 fL (7.4-10.4); MONO % 6.6 %; MONO ABS # 0.35 K/uL (0.11-0.59); NEUT % 60.3 %; NEUT ABS # 3.19 K/uL (1.4-6.5); PLATELET COUNT 166 K/uL (130-400); RED CELL DISTRIBUTION WIDTH SD 42.7 fL (36.4-46.3); WHITE BLOOD COUNT 5.29 K/uL (4.8-10.8)
[2017-09-15] MEDS ORDERED: OPTIRAY 320 IV PRN (13:45)
[2017-09-15 13:58] LABS: ALBUMIN 4.1 gm/dl (3.4-5.0); CALCIUM 8.8 mg/dl (8.5-10.1); CREATININE 0.73 mg/dl (0.60-1.20); POTASSIUM 3.4 mmol/L (3.5-5.1); TOTAL PROTEIN 7.7 gm/dl (6.4-8.2)
--- NOTE | 2017-09-15 14:12 | EMERGENCY ROOM VISIT NOTE ---
History First contact with patient: 13:00 Chief Complaint: FLANK PAIN Stated Complaint: SIDE AND BACK PAIN History of Present Illness The patient is a 32 year old female who presents to the Emergency Room with complaints of right-sided flank and abdominal pain that started yesterday. The patient has also been nauseated. No vomiting. She denies any fever or chills. She tried ibuprofen with minimal relief of the pain. She denies any urinary symptoms. No changes in bowel movements. Last menstrual period was 2 weeks ago. She describes as a constant, dull ache. Worse with movement. Review of Systems 10 system review performed and negative unless noted in HPI or below Past Medical/Surgical History Medical Problems: (1) Normal labor (2) with 39 completed weeks gestation Social History Smoking Status: Never Smoker Alcohol Use: none Drug Use: none Current/Historical Medications No Active Prescriptions or Reported Meds Physical Exam Vital Signs Date Time Temp Pulse Resp B/P (MAP) Pulse Ox O2 Delivery O2 Flow Rate FiO2 09/15/17 17:20 63 18 122/92 100 09/15/17 15:45 62 18 114/87 98 Room Air 09/15/17 12:51 36.8 72 20 132/86 99 Room Air Physical Exam VITALS: Vitals are noted on the nurse's note and reviewed by myself. Vital signs stable. GENERAL: 32-year-old female, in no acute distress, nondiaphoretic, well- developed well-nourished. SKIN: The skin was without rashes, erythema, edema, or bruising. HEAD: Normocephalic atraumatic. EYES: . Conjunctivae without injection, sclerae without icterus. Extraocular movements intact. MOUTH: Mucous membranes slightly dry NECK: Supple without nuchal rigidity. . No JVD. HEART: Regular rate and rhythm without murmurs gallops or rubs. LUNGS: Clear to auscultation bilaterally without wheezes, rales or rhonchi. No accessory muscle use. ABDOMEN: Bowel sounds hypoactive. Tenderness to palpation in the right lower quadrant. Mild right-sided CVA tenderness noted. MUSCULOSKELETAL: No muscle atrophy, erythema, or edema noted. Strength 5/5 throughout. NEURO: Patient was alert and oriented to person place and time. Normal sensation to touch. No focal neurological deficits. Medical Decision & Procedures ER Provider Diagnostic Interpretation: CT abdomen and pelvis with IV and oral contrast 1. No bowel wall thickening or obstruction. 2. Right-sided nephrolithiasis. No ureteral stones. No hydronephrosis. 3. The appendix is not identified with certainty. However, there are no inflammatory change within the right or quadrant. Consider follow-up abdomen and pelvis CT if the patient's symptoms continue to progress. Electronically signed by: Nilton Valdovinos M.D. 09/15/2017 4:29 PM Dictated Date/Time: 09/15/2017 4:17 PM The status of this report is Signed. Draft = Not yet reviewed or approved by Radiologist. Signed = Reviewed and approved by Radiologist. Laboratory Results 09/15/17 13:30 Red Blood Count 4.44, Mean Corpuscular Volume 89.0, Mean Corpuscular Hemoglobin 30.4, Mean Corpuscular Hemoglobin Concent 34.2, Mean Platelet Volume 9.9, Neutrophils (%) (Auto) 60.3, Lymphocytes (%) (Auto) 31.4, Monocytes (%) (Auto) 6.6, Eosinophils (%) (Auto) 1.5, Basophils (%) (Auto) 0.2, Neutrophils # (Auto) 3.19, Lymphocytes # (Auto) 1.66, Monocytes # (Auto) 0.35, Eosinophils # (Auto) 0.08, Basophils # (Auto) 0.01 09/15/17 13:30 Test 09/15/17 13:30 09/15/17 14:09 White Blood Count 5.29 K/uL (4.8-10.8) Red Blood Count 4.44 M/uL (4.2-5.4) Hemoglobin 13.5 g/dL (12.0-16.0) Hematocrit 39.5 % (37-47) Mean Corpuscular Volume 89.0 fL (80-100) Mean Corpuscular Hemoglobin 30.4 pg (25-34) Mean Corpuscular Hemoglobin Concent 34.2 g/dl (32-36) Platelet Count 166 K/uL (130-400) Mean Platelet Volume 9.9 fL (7.4-10.4) Neutrophils (%) (Auto) 60.3 % Lymphocytes (%) (Auto) 31.4 % Monocytes (%) (Auto) 6.6 % Eosinophils (%) (Auto) 1.5 % Basophils (%) (Auto) 0.2 % Neutrophils # (Auto) 3.19 K/uL (1.4-6.5) Lymphocytes # (Auto) 1.66 K/uL (1.2-3.4) Monocytes # (Auto) 0.35 K/uL (0.11-0.59) Eosinophils # (Auto) 0.08 K/uL (0-0.5) Basophils # (Auto) 0.01 K/uL (0-0.2) RDW Standard Deviation 42.7 fL (36.4-46.3) RDW Coefficient of Variation 13.0 % (11.5-14.5) Immature Granulocyte % (Auto) 0.0 % Immature Granulocyte # (Auto) 0.00 K/uL (0.00-0.02) Anion Gap 7.0 mmol/L (3-11) Est Creatinine Clear Calc Drug Dose 109.6 ml/min Estimated GFR () 128.1 Estimated GFR (Non- 110.5 BUN/Creatinine Ratio 15.6 (10-20) Calcium Level 8.8 mg/dl (8.5-10.1) Total Bilirubin 0.7 mg/dl (0.2-1) Aspartate Amino Transf (AST/SGOT) 17 U/L (15-37) Alanine Aminotransferase (ALT/SGPT) 22 U/L (12-78) Alkaline Phosphatase 63 U/L (45-117) Total Protein 7.7 gm/dl (6.4-8.2) Albumin 4.1 gm/dl (3.4-5.0) Globulin 3.6 gm/dl (2.5-4.0) Albumin/Globulin Ratio 1.1 (0.9-2) Lipase 91 U/L (73-393) Urine Color YELLOW Urine Appearance CLEAR (CLEAR) Urine pH 6.5 (4.5-7.5) Urine Specific [place] 1.006 (1.000-1.030) Urine Protein NEG (NEG) Urine Glucose (UA) NEG (NEG) Urine Ketones NEG (NEG) Urine Occult Blood NEG (NEG) Urine Nitrite NEG (NEG) Urine Bilirubin NEG (NEG) Urine Urobilinogen NEG (NEG) Urine Leukocyte Esterase NEG (NEG) Urine Test NEG (NEG) Medications Administered Medications (Trade) Dose Ordered Sig/Cookie Route Start Time Stop Time Status Last Admin Dose Admin Sodium Chloride 1,000 ml @ 999 mls/hr Q1H1M ONCE IV 09/15/17 13:15 09/15/17 14:15 DC 09/15/17 13:33 999 MLS/HR ED Course Patient was seen and examined Vital signs including blood pressure were reviewed medications list was verified with patient Labs were obtained, and a saline lock was established The patient was ordered morphine 4 mg IV and Zofran 4 mg IV. She was hydrated with 1 L of normal saline. Upon reevaluation, the patient was resting comfortably. She was comfortable being discharged home. The case was also discussed with my supervising physician who is in agreement with my plan I reviewed discharge instructions the patient. They voiced understanding and had no further questions. Medical Decision DIFFERENTIAL DIAGNOSIS: Ureteral stone, pyelonephritis, UTI, muscular pain gastroenteritis, Hepatitis, cholecystitis, cholangitis, biliary colic, pancreatitis, appendicitis, inguinal hernia, ureteral stone, inflammatory bowel disease, mesenteric adenitis, peptic ulcer disease, GERD, gastritis, pancreatitis,, bowel obstruction, splenic infarct, diverticulitis, mesenteric ischemia, metabolic, peritonitis, among others. This patient is a 32-year-old female presents to the emergency department with right-sided flank and abdominal pain. On exam, she was tender in the right lower quadrant. Labs reveal no leukocytosis. Urinalysis appears clean. Imaging was performed. Although the appendix was not completely visualized, there are no signs of acute appendicitis. Nephrolithiasis was noted without any ureteral stones. The etiology of the patient's pain is unclear. She does appear more comfortable now. It is possible that she passed a small stone. It is also possible that the pain is muscular in nature. The patient was advised to follow-up closely with her primary care physician. She was also cautioned on symptoms for which to return to the emergency department. She was comfortable with this plan, discharged in good condition This chart was completed in part utilizing [employer] Speech Voice Recognition software. Attempts were made to minimize the grammatical errors, random word insertions, pronoun errors and incomplete sentences. Any formal questions or concerns about the content, text or information contained within the body of this dictation should be directly addressed to the provider for clarification. Impression Primary Impression: Right flank pain Departure Information Dispostion Home / Self-Care Condition GOOD Prescriptions No Active Prescriptions or Reported Meds Referrals Javon Burks D.O. (PCP) Patient Instructions My [facility] Additional Instructions You have been evaluated in the emergency department for flank pain and right- sided abdominal pain. Please follow-up with your primary care physician within the next 2-3 days for an abdominal recheck Please take Zofran 1 tab under the tongue every 6 hours as needed for nausea Continue to stay well-hydrated. Increase fluids over the next several days Please take ibuprofen 600 mg every 6 hours as needed for discomfort. Please do not exceed 2400 mg in a 24-hour period. Please do not hesitate to return to the emergency department with any new, worsening or concerning symptoms; especially, worsening pain particularly in the right lower abdomen, fever, progressive nausea or bloody diarrhea It was a pleasure participating in your care today
--- NOTE | 2017-09-15 16:30 | DIAGNOSTIC IMAGING REPORT ---
ABDOMEN AND PELVIS CT WITH IV AND ORAL CONTRAST CT DOSE: 263.41 mGy.cm HISTORY: R side/flank pain TTP RLQ nausea TECHNIQUE: Multiaxial CT images of the abdomen and pelvis were performed following the use of intravenous and oral contrast. A dose lowering technique was utilized adhering to the principles of ALARA. COMPARISON STUDY: None. FINDINGS: The lung bases are clear. No pneumoperitoneum. No pneumatosis. No fractures within the visualized osseous structures. Mild periportal edema. No hepatic or splenic masses. The adrenal glands, pancreas, gallbladder, and left kidney are unremarkable. There is a 7 mm hypodense lesion within the right kidney. This is too small to characterize but favors a cyst. There is a 4 mm stone within the right kidney. No hydronephrosis. No ureteral stones. The bladder is decompressed and not well visualized. The uterus and bilateral adnexa are within normal limits. Small follicle/cyst within the left ovary. No retroperitoneal lymphadenopathy. Trace pelvic free fluid. No bowel wall thickening or obstruction. The appendix is not identified with certainty. However, there are no inflammatory changes within the right lower quadrant. IMPRESSION: 1. No bowel wall thickening or obstruction. 2. Right-sided nephrolithiasis. No ureteral stones. No hydronephrosis. 3. The appendix is not identified with certainty. However, there are no inflammatory change within the right or quadrant. Consider follow-up abdomen and pelvis CT if the patient's symptoms continue to progress. Electronically signed by: Nilton Valdovinos M.D. 09/15/2017 4:29 PM Dictated Date/Time: 09/15/2017 4:17 PM
[2017-09-15] MEDS ORDERED: ONDANSETRON HOME PACK 4MG OD TAB PO ONE (17:00)
[2017-09-15 17:20] VITALS: BP 122/92; PULSE 63; O2SAT 100
== END 2017-09-15 17:18 | disposition home or self-care (01) ==
LOC: C.EDB 12:49 → C.EDA 17:18
DX: R10.31 Right lower quadrant pain (principal); N20.0 Calculus of kidney

== ENCOUNTER 2022-04-12 07:47 | Inpatient (IN) ==
[2022-04-12] MEDS: LACTATED RINGER'S 1,000 ML IV PRN ×2 (08:45→13:06)
[2022-04-12] MEDS ORDERED: OXYTOCIN 30 UNITS/500 ML BAG IV PRN ×3 (08:50→15:44)
[2022-04-12] MEDS ORDERED: LIDOCAINE 1% LOCAL 20 ML VIAL INFIL PRN (08:50)
[2022-04-12] MEDS ORDERED: PENICILLIN G POTASSIUM 6 MU in DEXTROSE 5% 250 ML IV STA (08:59)
[2022-04-12 09:20] LABS: Hematocrit (blood only) 35.7 % (34.1-44.9); Hemoglobin 12.2 g/dl (12.0-16.0); Mean Corpuscular Hemoglobin 30.5 pg (25.0-34.0); Mean Corpuscular Hgb Conc 34.2 g/dL (32.0-36.0); Mean Corpuscular Volume 89.3 fL (80.0-100.0); Mean Platelet Volume 10.2 fL (9.4-12.3); Platelet Count 156 K/uL (130-400); RDW Coefficient of Variation 16.2 % (11.5-14.5); RDW Standard Deviation 53.5 fL (36.4-46.3); White Blood Count 8.41 K/ul (4.8-10.8)
[2022-04-12] MEDS ORDERED: PENICILLIN G POTASSIUM 3 MU in DEXTROSE 5% 100 ML IV PRN (11:50)
[2022-04-12] MEDS ORDERED: fentaNYL citrate 100 MCG/2 ML VIAL ONE (12:38)
[2022-04-12] MEDS ORDERED: SODIUM CHLORIDE 0.9% INJ 10 ML VIAL ONE (12:38)
[2022-04-12] MEDS ORDERED: ePHEDrine sulfate 50 MG/ML AMP ONE (12:38)
[2022-04-12] MEDS ORDERED: fentaNYL 2MCG/ML ROPIVACAINE 1.25MG/ML 100 ML BAG EPI ONE (12:39)
[2022-04-12] MEDS ORDERED: BUPIVACAINE 0.25% 30 ML VIAL ONE (12:39)
[2022-04-12] MEDS ORDERED: LIDOCAINE 2%/EPINEPHRINE 1:200,000 20 ML SDV ONE (12:39)
[2022-04-12] MEDS ORDERED: diphenhydrAMINE 50 MG/ML VIAL IV PRN (12:46)
[2022-04-12] MEDS ORDERED: fentaNYL 2MCG/ML ROPIVACAINE 1.25MG/ML 100 ML BAG EPI PRN (12:46)
[2022-04-12] MEDS ORDERED: NALOXONE HCL 1 MG in SODIUM CHLORIDE 0.9% 1000ML 1,000 ML IV PRN (12:46)
[2022-04-12] MEDS ORDERED: NALOXONE HCL 0.4 MG/1 ML VIAL/CARP IV PRN (12:46)
[2022-04-12] MEDS ORDERED: ePHEDrine sulfate 50 MG/ML AMP IV PRN (12:46)
[2022-04-12] MEDS ORDERED: NALBUPHINE HCL INJ 10 MG/ML AMP IV PRN (12:46)
--- NOTE | 2022-04-12 12:46 | Anesthesiology Consultation ---
Date of Service April 12, 2022 Assessment & Plan (1) Encounter for pre-operative examination: Chart Review Chart Review: Acceptable Risk for Surgery and Patient NOT seen in Pre Admission Testing Consults Requested none History Height/Weight Height: 5 ft 8 in Weight: 80.286 kg Allergies Allergy/AdvReac Type Severity Reaction Status Date / Time No Known Drug Allergies Allergy Unknown Verified 04/12/22 08:35 Medications Home Medications Medication Instructions Recorded Confirmed Last Taken prenat.vits,joanne,[id number] 1 tab PO DAILY 09/01/21 04/11/22 Unknown valacyclovir 500 mg tablet 500 mg PO BID #60 tabs 03/12/22 04/11/22 Unknown (Valtrex) ferrous sulfate [Iron (ferrous PO 03/23/22 04/11/22 Unknown sulfate)] Active Medications Generic Name Dose Route Start Last Admin Trade Name Freq PRN Reason Stop Dose Admin Lactated Ringer's 1,000 mls @ 125 mls/hr 04/12/22 08:50 04/12/22 12:05 Lr IV 04/14/22 08:49 125 mls/hr .Q8H PRN Infusion L&D Protocol Protocol Oxytocin 30 units in 500 mls @ 10 mls/hr 04/12/22 08:51 04/12/22 11:15 Pitocin IV 04/14/22 08:50 0.6 units/hr .Q24H PRN 10 mls/hr Labor Induction/Augmentation Titration Protocol 0.6 UNITS/HR Past Medical History Medical History Ankylosing spondylitis Possible, Positive [id number] Anxiety Arthritis of neck Dextroscoliosis Mild upper thoracic dextroscoliosis per 11/30/2019 xray Inflammatory polyarthropathy Per 2019 rheum records Past Family History Family History Grandmother (Paternal) Breast cancer Grandmother (Maternal) Colorectal cancer Grandfather (Paternal) Lung cancer Denies family history of Ovarian cancer Prostate cancer Myocardial infarction Past Surgical History Surgical History History of wisdom tooth extraction two removed - two still present Social History Smoking Status: Never smoker Do You Dip or Chew Tobacco: No Hx Alcohol Use: No Hx Substance Use: No Physical Exam Vital Signs Last Vital Signs Temp 98.4 F 04/12/22 08:07 Pulse 69 04/12/22 12:44 Resp 18 04/12/22 08:07 BP 118/75 04/12/22 12:27 Pulse Ox 99 04/12/22 12:44 Testing Laboratory Results 04/12/22 08:46 Blood Type AB Negative 04/12/22 08:44 Antibody Screen NEGATIVE 04/12/22 08:44
--- NOTE | 2022-04-12 14:55 | History & Physical Report ---
Date of Service April 12, 2022 Assessment & Plan (1) HSV-1 infection: (2) Carrier of group B Streptococcus: (3) Need for rhogam due to Rh negative mother: (4) Elective induction of labor planned: Plan - Patient admitted to labor and delivery for initiation of medical induction of labor - Patient is at 4/80/-[address] Dillon w/ evidence of contractions on Pitocin augmentation - Plan artificial ROM - GBS +: PCN started - HSV I and II + - RH - mother, will need RhoGAM PP - Anticipate epidural PRN - Labs ordered Admission and Anticipated Discharge Date Admission Date: April 12, 2022 History of Present Illness Chief Complaint: Induction Primary Care Provider: Dona Emanuel DO Ashli is a 36F currently at 39 4/7 with NATY 04/15/22 determined by LMP 07/09/21 who is presenting to L&D for induction. Complications: HSV, Ankylosing Spondylitis Reason for Induction/: HSV Movement: Yes Fluid Loss/ROM: No Bloody show/discharge: Spotting since cervix check in office External FHT and uterine monitor: Category 1, tracing reactive, good FHT variability, +contractions Last OB appointment: 04/11, regular care Labs: Blood Type: AB- Antibody Screen: Negative Hg/Hct (today): /35.7 WBC/Plt (today): 8.4/156 Rubella: Immune RPR: Non-reactive Gonorrhea: Negative Chlamydia: Negative HIV: Negative HbSAg: Negative GBS: Positive Cff-DNA: Low risk Allergies Allergy/AdvReac Type Severity Reaction Status Date / Time No Known Drug Allergies Allergy Unknown Verified 04/12/22 08:35 Home Medications Medication Instructions Recorded Confirmed Type prenat.vits,joanne,[id number] 1 tab PO DAILY 09/01/21 04/11/22 History valacyclovir 500 mg tablet 500 mg PO BID #60 tabs 03/12/22 04/11/22 Rx (Valtrex) ferrous sulfate [Iron (ferrous PO 03/23/22 04/11/22 History sulfate)] Patient History Medical History Ankylosing spondylitis Possible, Positive [id number] Anxiety Arthritis of neck Dextroscoliosis Mild upper thoracic dextroscoliosis per 11/30/2019 xray Inflammatory polyarthropathy Per 2019 rheum records Surgical History History of wisdom tooth extraction two removed - two still present Family History Grandmother (Paternal) Breast cancer Grandmother (Maternal) Colorectal cancer Grandfather (Paternal) Lung cancer Denies family history of Ovarian cancer Prostate cancer Myocardial infarction Social History Smoking Status: Never smoker Tobacco Type: Cigarettes Second Hand Exposure: No; Do You Dip or Chew Tobacco: No; Tobacco Cessation Education Requested by Patient: No Hx Alcohol Use: No Hx Substance Use: No Preferred Language: Estonian Communication Ability: Effective Visual Impairment: No Limitations Hearing Ability: Normal [address] Service Required: No Beliefs That Will Affect Care: None marital status: Single marital status details: TUSHAR Garcia (29) [phone] Current Living Situation: Significant Other Current Living Situation Comment: RICHAR Salgado and son current occupational status: employed 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 How many Children do You have: 1 Other Information That Helps Us Care for You: No Feels Safe at Home: Yes Safety Concerns: Feels Safe At This Time Childhood Exposure to Second-Hand Smoke: No Diet Comment: regular caffeine: No (Coffee x 1 per day Soda x occasional.) during the past year weight has: remained stable Dental Care, Regularly: Yes Physical Activity Frequency: Daily Seatbelt Use: always Sunscreen Use: Yes Assistive Devices: Glasses Review of Systems - Denies fever, chills, sweats - Denies dyspnea or pleuritic pain - Denies chest pain, palpitations, or pressure - Denies breast pain - Denies dysuria - Denies headache or visual changes Physical Exam Physical Exam: General: Alert, oriented. No acute distress. Cardiac: Regular rate and rhythm, no murmurs/rubs/gallops. Respiratory: Clear to auscultation bilaterally a/p, no wheezes/rales/rhonchi. No increased work of breathing. Symmetrical chest rise. No respiratory distress. Abdomen: Gravid; reactive FHTs; Position: Vertex w/ Vance maneuver Pelvic: 4/80/-[address] Dillon Lower Extremities: No lower extremity edema or swelling. No deep calf pain. Lalita's negative bilaterally. Results & Data ([place]) Vital Signs (Past 12 Hours) Vital Signs Temp Pulse Resp BP Pulse Ox 04/12/22 14:44 78 100 04/12/22 14:39 99 04/12/22 14:39 70 04/12/22 14:39 68 111/73 04/12/22 14:34 76 99 04/12/22 14:31 68 120/78 04/12/22 14:29 96 H 100 04/12/22 14:27 88 100/55 L 04/12/22 14:24 100 04/12/22 14:24 77 04/12/22 14:24 61 101/64 04/12/22 14:19 56 L 98 04/12/22 14:14 57 L 100 04/12/22 14:09 89 100 04/12/22 14:04 73 100 04/12/22 13:59 65 100 04/12/22 13:54 98 04/12/22 13:54 89 04/12/22 13:54 78 107/69 04/12/22 13:49 69 99 04/12/22 13:45 18 04/12/22 13:45 18 04/12/22 13:36 36.7 C 04/12/22 13:20 18 04/12/22 13:20 18 04/12/22 13:44 71 100 04/12/22 13:39 81 98 04/12/22 13:38 81 119/69 04/12/22 13:34 100 04/12/22 13:34 79 04/12/22 13:34 83 117/77 04/12/22 13:29 74 100 04/12/22 13:28 74 118/73 04/12/22 13:24 79 99 04/12/22 13:22 87 121/78 04/12/22 13:19 82 99 04/12/22 13:16 81 123/62 04/12/22 13:14 84 18 122/63 100 04/12/22 13:12 78 123/62 04/12/22 13:11 18 04/12/22 13:11 18 04/12/22 13:10 75 119/65 04/12/22 13:09 74 100 04/12/22 13:08 75 18 128/79 04/12/22 13:06 78 124/76 04/12/22 13:04 80 125/73 100 04/12/22 13:02 88 127/65 04/12/22 12:59 79 98 04/12/22 13:00 76 137/74 04/12/22 12:58 78 152/80 H 04/12/22 12:54 74 100 04/12/22 12:49 67 100 04/12/22 12:45 18 04/12/22 12:45 36.8 C 18 04/12/22 12:44 69 99 04/12/22 12:39 65 100 04/12/22 12:34 78 100 04/12/22 12:27 64 118/75 04/12/22 11:56 61 116/73 04/12/22 11:27 62 112/72 04/12/22 10:57 62 114/73 04/12/22 10:27 70 112/80 04/12/22 09:42 67 119/79 04/12/22 09:27 68 114/73 04/12/22 09:12 67 116/75 04/12/22 08:09 75 119/80 04/12/22 08:07 36.9 C 18 Resident Activity Tracking Resident Involvement: Resident Care Provided Care Provided: OB Delivery
[2022-04-12] MEDS ORDERED: BENZOCAINE 20% AER SPR 82.5 GM CAN EXT PRN (15:44)
[2022-04-12] MEDS ORDERED: ACETAMINOPHEN 325 MG TAB PO PRN (15:44)
[2022-04-12] MEDS ORDERED: HYDROCORTISONE ACETATE 25 MG SUPP PR PRN (15:44)
[2022-04-12] MEDS ORDERED: DIPHTHERIA/TETANUS/PERTUSSIS 0.5 ML SYR/VIAL IM ONE (15:44)
[2022-04-12] MEDS ORDERED: bisacodyL 10 MG SUPP PR PRN (15:44)
--- NOTE | 2022-04-12 15:45 | Delivery Summary ---
Vaginal Delivery Summary Date of Service April 12, 2022 Vaginal Delivery Summary Spontaneous vaginal delivery the patient was induced after 39 weeks electively multipara group B strep positive received adequate dosing of penicillin Pitocin was started and artificial rupture of membranes she delivered after artificial rupture membranes shortly thereafter baby in occiput anterior pushing over a total of 2 contractions once the baby's head was delivered mouth and then nares were suctioned fluid was clear a loose nuchal cord was passed over the head gentle traction the baby no excessive force live vigorous male infant cord clamped and cut cord blood obtained placenta removed with gentle traction small second-degree tear repaired with 3-0 Vicryl oxytocin started and uterine tone improved uterine hemostasis was excellent estimated blood loss 150 mL sponge and instrument counts correct
--- NOTE | 2022-04-12 16:54 | Anesthesia Procedure Note ---
Date of Service April 12, 2022 Anesthesia Post Epidural Note Vital Signs Vital Signs: Temp Pulse Resp BP Pulse Ox 36.5 C 74 16 112/82 99 04/12/22 15:45 04/12/22 16:38 04/12/22 16:45 04/12/22 16:38 04/12/22 15:39 Notes Mental Status: alert / awake / arousable Nausea / Vomiting: adequately controlled Pain: adequately controlled Airway Patency, RR, SpO2: stable & adequate BP & HR: stable & adequate Hydration State: stable & adequate Neuraxial Anesthesia: was administered and sensory block is resolving Anesthetic Complications: no major complications apparent and Pt Satisfied with anesthetic care Epidural: Removed without complications and With tip intact
[2022-04-12] MEDS: DOCUSATE SODIUM 100 MG CAP PO SCH (21:24)
[2022-04-12] MEDS: IBUPROFEN 600 MG TAB PO PRN (23:59)
[2022-04-13] MEDS: IBUPROFEN 600 MG TAB PO PRN ×2 (04:10→08:45)
--- NOTE | 2022-04-13 05:50 | Obstetrical Progress Note ---
Date of Service April 13, 2022 Assessment & Plan (1) care following vaginal delivery: (2) Need for rhogam due to Rh negative mother: Plan - Overall, feeling well and eating well today and wants to go home - feeding going well without concern - Urinating and passing gas appropriately - Ambulating well in room - Pain controlled w/ Ibuprofen - Rh negative mother, Rh negative baby - Hgb pending - Vitals stable and wnl - Routine PP care progressing well - Anticipate discharge today - Recommending f/u outpatient in 6 weeks Admission and Anticipated Discharge Date Admission Date: April 12, 2022 Supervising Physician Co-Signing Physician Notes Resident Physician Supervision Note: I was present with Dr. Bernal during the history and exam. I discussed the case with the resident and agree with the findings and plan as documented in the note. Any exceptions or clarifications are listed here: [None] Documented By: Fadumo Dillon MD, FACOG Subjective Ashli is a 36F who is PPD #1 following vaginal delivery at 39 4/7. She reports feeling well overall today and wants to go home this evening. - Ambulation - well throughout room - Voiding/[place] - independent voids, no dysuria or pressure - Gas/Stool - passing gas, no bowel movement - Diet - regular, no nausea or emesis - Lochia - diminishing, light amount - Infant Feeding Type - breast feeding - Pain Level - 2/10, controlled with Ibuprofen Review of Systems - Denies fever, chills, sweats - Denies shortness of breath, difficulty breathing, chest pain, palpitations, chest pressure. - Denies breast pain. - Denies dysuria. - Denies headache or changes in vision. Physical Exam Physical Exam: General: Alert, oriented. No acute distress. Cardiac: RRR, normal S1/S2, no murmurs/rubs/gallops. Respiratory: Non-labored, CTAB, no wheezes/rales/rhonchi. Symmetric chest rise. Abdomen: Soft, nontender, nondistended. Bowel sounds present. Uterus: Uterine fundus firm, palpable 2 cm below umbilicus. Lower Extremities: No lower extremity edema or swelling. No deep calf pain. Lalita's negative bilaterally. Results & Data ([facility]) Vital Signs (Past 12 Hours) Vital Signs Temp Pulse Pulse Resp BP BP Pulse Ox 04/12/22 23:50 36.6 C 60 18 116/78 97 04/12/22 18:25 37.3 C 72 20 117/74 98 04/12/22 18:00 77 117/65 04/12/22 17:53 83 118/65 O2 Del Method 04/12/22 23:50 Room Air 04/12/22 18:25 Room Air 04/12/22 18:00 04/12/22 17:53 Resident Activity Tracking Resident Involvement: Resident Care Provided Care Provided: OB Delivery
[2022-04-13 07:16] LABS: Hematocrit (blood only) 34.1 % (34.1-44.9); Hemoglobin 11.8 g/dl (12.0-16.0); Mean Corpuscular Hemoglobin 30.3 pg (25.0-34.0); Mean Corpuscular Hgb Conc 34.6 g/dL (32.0-36.0); Mean Corpuscular Volume 87.7 fL (80.0-100.0); Mean Platelet Volume 10.4 fL (9.4-12.3); Platelet Count 130 K/uL (130-400); RDW Coefficient of Variation 16.3 % (11.5-14.5); RDW Standard Deviation 52.4 fL (36.4-46.3); Red Blood Count 3.89 M/uL (3.93-5.22); White Blood Count 10.35 K/ul (4.8-10.8)
[2022-04-13] MEDS ORDERED: PRENATAL VITAMIN 1 TAB PO SCH (08:00)
[2022-04-13] MEDS: DOCUSATE SODIUM 100 MG CAP PO SCH (08:45)
[2022-04-13] MEDS ORDERED: bisacodyL 5 MG TABEC PO SCH (20:00)
== END 2022-04-13 17:00 | disposition home or self-care (01) | DRG 806 ==
LOC: 4S1 07:47 → 4E2 18:25